=== PATIENT | male | born 1950 ===

== ENCOUNTER 2019-01-20 04:12 | Emergency (ER) | payer MEDICARE ==
--- NOTE | 2019-01-20 05:00 | C.PDOC ---
History Of Present Illness 68 year old male with PMHx of chronic right shoulder pain presents to the ED c/o worsening right shoulder pain since midnight. Patient states he was seen at his PMD's office yesterday and given a cortisone shot in his right shoulder joint. Patient states pain did not improves, took Tramadol 50 mg at 02:00 today also with minimal relief. Patient denies headache, neck pain,rash, injury, fall, trauma, weakness, numbness. Time Seen by Provider: 01/20/19 04:29 Chief Complaint (Nursing): Upper Extremity Problem/Injury History Per: Patient History/Exam Limitations: no limitations Onset/Duration Of Symptoms: Hrs (midnight) Current Symptoms Are (Timing): Still Present Quality: "Pain" Exacerbating Factor(s): Movement Recent travel outside of the [place]: No Additional History Per: Patient Past Medical History Reviewed: Historical Data, Nursing Documentation, Vital Signs Vital Signs: Last Vital Signs Temp 97 F L 01/20/19 04:23 Pulse 80 01/20/19 04:23 Resp 14 01/20/19 04:23 BP 197/82 H 01/20/19 04:23 Pulse Ox 99 01/20/19 04:23 - Medical History PMH: HTN, Hypercholesterolemia Surgical History: No Surg Hx Family History: States: Unknown Family Hx - Social History Hx Alcohol Use: No Hx Substance Use: No Review Of Systems Constitutional: Negative for: Fever, Chills Eyes: Negative for: Vision Change Cardiovascular: Negative for: Chest Pain Respiratory: Negative for: Shortness of Breath Musculoskeletal: Positive for: Shoulder Pain. Negative for: Neck Pain, Arm Pain Skin: Negative for: Rash Neurological: Negative for: Weakness, Numbness, Headache, Dizziness Physical Exam - Physical Exam Appears: Non-toxic, No Acute Distress Skin: Normal Color, Warm, Dry, No Rash Head: Atraumatic, Normacephalic Eye(s): bilateral: Normal Inspection Neck: Normal ROM, Supple Extremity: Normal ROM (limited right shoulder due to pain), Tenderness (right shoulder ), Capillary Refill (< 2 seconds), No Swelling, Other (no warmth, swelling, erythema to right shoulder area) Pulses: Left Radial: Normal Neurological/Psych: Oriented x3, Normal Speech, Normal Cognition, Normal Motor, Normal Sensation Gait: Steady ED Course And Treatment O2 Sat by Pulse Oximetry: 99 (ON RA) Pulse Ox Interpretation: Normal Progress Note: Plan: - Toradol 30 mg IM. Patient's right shoulder was placed on a sling for support. Patient reports improvement to pain after medication. Patient advised to follow up with PMD for further evaluation. Disposition Counseled Patient/Family Regarding: Diagnosis, Need For Followup, Rx Given - Disposition Disposition: HOME/ ROUTINE Disposition Time: 05:30 Condition: STABLE Additional Instructions: Continue tramadol/ May take motrin for break through pain Alternate Heat and Ice to area Return to ER if worse Forms: [employer] (Bulgarian) - Clinical Impression Clinical Impression: Shoulder pain, right - PA / OPERATIONS SUPPORT REPRESENTATIVE / Resident Statement MD/DO has reviewed & agrees with the documentation as recorded. - Scribe Statement The provider has reviewed the documentation as recorded by the Scribe Jason Arnold All medical record entries made by the Scribe were at my direction and personally dictated by me. I have reviewed the chart and agree that the record accurately reflects my personal performance of the history, physical exam, medical decision making, and the department course for this patient. I have also personally directed, reviewed, and agree with the discharge instructions and disposition.
[2019-01-20 05:35] VITALS: BP 163/79; PULSE 78; RESP 18; TEMP 97.7
[2019-01-20 05:45] VITALS: O2SAT 99
== END 2019-01-20 05:41 | disposition home or self-care (01) ==
LOC: C.ER 04:12
DX: M25.511 Pain in right shoulder (principal); I10 Essential (primary) hypertension; E78.00 Pure hypercholesterolemia, unspecified
CPT/HCPCS: 96372; 99285; J1885